=== PATIENT | female | born 1940 | race Caucasian/White ===

== ENCOUNTER → 2017-08-10 | Day surgery (SDC) | payer MEDICARE ==
[~2017-08-10] MED LIST: BUPIVACAINE HCL PF 0.25% 30 ML VIAL ONE; LACTATED RINGER'S 1000 ML INJ 1,000 ML ONE; MIDAZOLAM HCL 2 MG/2 ML VIAL ONE; ONDANSETRON HCL 4 MG/2 ML VIAL IV PUSH ONE; PROPOFOL 100 MG/10 ML INJ IV ONE; ceFAZolin INJ 1,000 MG VIAL ONE; oxyCODONE/ACETAMINOPHEN 5 MG/325 MG TAB ONE
--- NOTE | 2017-08-10 13:13 | MP ---
cc: Ramya Randhawa MD DATE OF OPERATION: 08/10/2017 PRINCIPAL DIAGNOSIS: Amyloid tumor of the right breast. PROCEDURE PERFORMED: Right breast needle localized lumpectomy. SURGEON: Ramya Randhawa MD ANESTHESIA: General via LMA device. INDICATION FOR PROCEDURE: The patient is a 76-year-old female who had a palpable 1.7 cm mass in the upper outer quadrant of her right breast. Ultrasound-guided core biopsy demonstrated amyloid tumor and she now presents for reexcision of the area. FINDINGS AT THE TIME OF SURGERY: Specimen mammogram did demonstrate the lesion as well as the biopsy clip. DESCRIPTION OF PROCEDURE: After informed consent was obtained, and site verification was performed, the patient was brought to the radiology suite where she underwent needle localization of her prior biopsy site. She was then brought to the major operating room where she underwent general anesthesia via an LMA device. The right breast was prepped and draped in sterile fashion. She was given a single dose of IV Ancef and sequential compression hose were placed. An incision was anesthetized in the periareolar location and the lesion was identified at 10 o'clock, 2 cm from the nipple. The periareolar incision was sharply created and sharp dissection was performed until the wire entry point through the skin was identified and secured with a hemostat. The wire was cut off at the skin with pin cutters and a 2-0 silk transfixion suture was placed at the wire entry point into the breast tissue. Sharp and electrocautery dissection was then performed circumferentially around the wire and the specimen was oriented with 2 sutures anteriorly, 1 short suture superiorly, and 1 long suture laterally. The specimen was sent to mammography with the findings as noted and was then sent for permanent pathologic evaluation. Hemostasis was easily obtained with direct pressure and electrocautery. The wound was closed using interrupted 3-0 Vicryl subcutaneous sutures and a 4-0 Monocryl subcuticular suture. Steri-Strips and a sterile dressing were applied. The patient tolerated the procedure well with minimal blood loss and she was extubated in the operating room and brought to the recovery room in good condition. All sponge and needle counts were correct at the conclusion of the case. Ramya Randhawa MD CEW/SHAAN Luevano: 08/10/2017, 12:58 PM , 01:12 PM
== END | disposition home or self-care (01) ==
LOC: ESDC 08:25
PROVIDERS: ATTEND Surgery
DX: D24.1 Benign neoplasm of right breast (principal)
CPT/HCPCS: 00400; 19125; 88307; J0690; J2250; J2405; J3010; J7120